=== PATIENT | female | born 1970 | race Caucasian/White ===

== ENCOUNTER 2024-11-08 10:20 | Outpatient (CLI) | payer BC, SELFPAY | END 2024-11-08 10:21 | disposition home or self-care (01) | PROVIDERS: Visit Provider Physician Assistant | DX: R53.83 Other fatigue (principal); E61.1 Iron deficiency; Z13.228 Encounter for screening for other metabolic disorders; Z13.6 Encounter for screening for cardiovascular disorders; Z13.29 Encounter for screening for other suspected endocrine disorder | CPT/HCPCS: 80053; 80061; 82728; 83001; 83540; 84439; 84443 ==

== ENCOUNTER 2024-12-10 06:35 | Outpatient (CLI) | payer BC, SELFPAY ==
--- NOTE | 2024-12-10 07:48 | P.ANES_ITS ---
Anesthesia Charges Start Date/Time Anesthesia Start Date: 12/10/24 Anesthesia Start Time: 07:18 Stop Date/Time Anesthesia Stop Date: 12/10/24 Anesthesia Stop Time: 07:45 Coding CPT Codes CPT Codes: NATALIE LWR INTST NDSC NOS - [id number] ([id number]) P2 - PATIENT W/MILD SYST DISEASE, QK - WATER SAFETY INSTRUCTOR 2-4 CNCRNT ANES PROC, QX - MANAGER BUSINESS SVC W/ MD MED DIRECTION
--- NOTE | 2024-12-10 07:48 | W.ANESCHARGE ---
Anesthesia Charges Start Date/Time Anesthesia Start Date: 12/10/24 Anesthesia Start Time: 07:18 Stop Date/Time Anesthesia Stop Date: 12/10/24 Anesthesia Stop Time: 07:45 Coding CPT Codes CPT Codes: NATALIE LWR INTST NDSC NOS - [id number] ([id number]) P2 - PATIENT W/MILD SYST DISEASE, QK - FUR REPAIRER 2-4 CNCRNT ANES PROC, QX - ASSOCIATE PROFESSOR OF PATHOLOGY SVC W/ MD MED DIRECTION
--- NOTE | 2024-12-10 09:42 | P.ANES_ITS ---
Anesthesia Charges Start Date/Time Anesthesia Start Date: 12/10/24 Anesthesia Start Time: 07:18 Stop Date/Time Anesthesia Stop Date: 12/10/24 Anesthesia Stop Time: 07:45 Coding CPT Codes CPT Codes: NATALIE LWR INTST NDSC NOS - [id number] ([id number]) QK - CANE PUSHER 2-4 CNCRNT ANEGordon PROC, QX - PIER HAND HELPER SVC W/ MD MED DIRECTION, P2 - PATIENT W/MILD SYST DISEASE
--- NOTE | 2024-12-10 09:42 | W.ANESCHARGE ---
Anesthesia Charges Start Date/Time Anesthesia Start Date: 12/10/24 Anesthesia Start Time: 07:18 Stop Date/Time Anesthesia Stop Date: 12/10/24 Anesthesia Stop Time: 07:45 Coding CPT Codes CPT Codes: NATALIE LWR INTST NDSC NOS - [id number] ([id number]) QK - NETWORK/TELECOM ENGINEER 2-4 CNCRNT ANEGordon PROC, QX - PLANT SENIOR MANAGER SVC W/ MD MED DIRECTION, P2 - PATIENT W/MILD SYST DISEASE
== END 2024-12-10 06:36 | disposition home or self-care (01) ==
LOC: OP CLINIC 06:36
PROVIDERS: PCP Physician Assistant; Visit Provider Internal Medicine
DX: Z12.11 Encounter for screening for malignant neoplasm of colon (principal); D12.5 Benign neoplasm of sigmoid colon
CPT/HCPCS: 00811; 45385; 88305; J2704

== ENCOUNTER 2025-01-07 07:38 | Outpatient (CLI) | payer BC, SELFPAY ==
--- NOTE | 2025-01-07 07:45 | CRLHL7_ITS ---
For Patients: As a result of the Century Cures Act, medical imaging exams and procedure reports are released immediately into your electronic medical record. You may view this report before your referring provider. If you have questions, please contact your health care provider. INDICATION: BILATERAL SCREENING MAMMOGRAM, ASYMPTOMATIC 54 Y/O FEMALE COMPARISON: 07/26/2023, 06/30/2022, 06/24/2021 TECHNIQUE: Digital mammogram in CC and MLO projections including computer-aided detection (CAD) and tomosynthesis. BREAST COMPOSITION: There are scattered areas of fibroglandular density. FINDINGS: No suspicious findings. ASSESSMENT: BI-RADS 2 Benign RECOMMENDATION: Annual screening mammogram. A lay language report of this examination will be provided to the patient. Dictated by: Chencho Hanson MD @ 01/14/2025 13:19:35 (Electronically Signed)
== END 2025-01-07 07:39 | disposition home or self-care (01) ==
LOC: MAMMO 07:39
PROVIDERS: PCP Physician Assistant; Visit Provider Physician Assistant
DX: Z12.31 Encounter for screening mammogram for malignant neoplasm of breast (principal)
CPT/HCPCS: 77063; 77067